=== PATIENT | female | born 1955 | race Caucasian/White ===

== ENCOUNTER 2023-04-04 15:33 | Emergency (ER) | payer MEDICARE ==
[~2023-04-04] VITALS: Ht 167.6 cm; Wt 70.8 kg
[2023-04-04] MEDS ORDERED: GLUCOPHAGE PO (15:54)
[2023-04-04] MEDS ORDERED: TOPCARE ASPIRIN81 M1 PO (15:55)
[2023-04-04] MEDS ORDERED: SINGULAIR 110 MG/TAB PO (15:56)
[2023-04-04] MEDS ORDERED: CRESTOR5 MG PO (15:57)
[2023-04-04] MEDS ORDERED: DULOXETINE20 MG PO (15:57)
[2023-04-04] MEDS ORDERED: TOPCARE OMEPRAZ20 MG PO (15:57)
[2023-04-04] MEDS ORDERED: MORGIDOX 1X100100 MG PO (16:22)
[2023-04-04 17:45] VITALS: BP 157/81
== END 2023-04-04 17:50 | disposition home or self-care (01) ==
LOC: ED 15:33
DX: S51.851A Open bite of right forearm, initial encounter (principal); Z88.0 Allergy status to penicillin; Z23 Encounter for immunization; W54.0XXA Bitten by dog, initial encounter
CPT/HCPCS: 90715